=== PATIENT | female | born 1980 | race African-American/Black ===

== ENCOUNTER 2019-07-24 19:19 | Emergency (ER) | payer BC, OTHER ==
[~2019-07-24] VITALS: Ht 170.2 cm; Wt 59.0 kg
[2019-07-24 19:24] VITALS: BP 136/79
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
[2019-07-24] MEDS ORDERED: HYDROCODONE/APAP 10/325MG 1 EA TABLET ONE (19:40)
[2019-07-24] MEDS ORDERED: HYDROCODONE/APAP 10/325MG 1 EA TABLET PO ONE (20:00)
--- NOTE | 2019-07-24 20:38 | NUR ---
Patient discharged to home in stable condition. Written and verbal after care instructions given. Patient verbalizes understanding of instruction.
== END 2019-07-24 20:38 | disposition home or self-care (01) ==
LOC: ER 19:20
DX: S60.222A Contusion of left hand, initial encounter (principal); S80.811A Abrasion, right lower leg, initial encounter; S19.80XA Other specified injuries of unspecified part of neck, initial encounter; V49.49XA Driver injured in collision with other motor vehicles in traffic accident, initial encounter; Y93.89 Activity, other specified; Y92.413 State road as the place of occurrence of the external cause; Y99.8 Other external cause status
CPT/HCPCS: 73130-TC